=== PATIENT | male | born 1935 | race Caucasian/White ===

== ENCOUNTER 2022-06-28 10:15 | Inpatient (IN) | payer MEDICARE ==
[~2022-06-28] VITALS: Ht 152.4 cm; Wt 108.4 kg
[2022-06-28] MEDS ORDERED: MIDAZOLAM HCL 2 MG/2ML VIAL ONE (10:21)
[2022-06-28] MEDS ORDERED: FENTANYL PF 100MCG/2ML AMPUL ONE (10:21)
[2022-06-28] MEDS ORDERED: LIDOCAINE HCL/MPF 1% 30 ML VIAL IJ ONE (10:21)
[2022-06-28] MEDS ORDERED: IV SET PRIMARY PUMP SET 1 EA INFUS.SET MC ONE (10:21)
[2022-06-28] MEDS ORDERED: IV NS 0.9% 1,000 ML ONE (10:21)
[2022-06-28] MEDS ORDERED: IODIXANOL 150 ML IV ONE (10:21)
[2022-06-28] MEDS ORDERED: NITROGLYCERIN IN 5 % DEXTROSE 250 ML IV ONE (10:22)
[2022-06-28 10:25] LABS: BASOPHILS % (AUTO) 0.3 % (0.0-2.0); EOSINOPHILS % (AUTO) 0.6 % (0.0-6.0); HEMATOCRIT 38 % (39-51); LYMPHOCYTES # (AUTO) 1.2 K/uL (0.8-4.8); LYMPHOCYTES % (AUTO) 15.7 % (20.0-44.0); MEAN CORPUSCULAR HGB CONC 34 g/dl (31.0-36.0); MEAN CORPUSCULAR VOLUME 95 fL (80-96); MONOCYTES # (AUTO) 1.2 K/uL (0.1-1.30); MONOCYTES % (AUTO) 16.3 % (2.0-12.0); NEUTROPHILS # (AUTO) 5.1 K/uL (1.8-8.9); NEUTROPHILS % (AUTO) 67.1 % (43.0-81.0); PLATELET COUNT (AUTO) 174 K/uL (150-450); RED BLOOD CELL COUNT(AUTO) 4.03 MIL/uL (4.5-6.0); WHITE BLOOD COUNT (AUTO) 7.6 K/uL (4.3-11.0)
[2022-06-28 10:35] LABS: CALCIUM, SERUM 8.2 mg/dL (8.5-10.1); CREATININE 0.9 mg/dL (0.6-1.3); POTASSIUM 3.8 mmol/L (3.5-5.1)
[2022-06-28 12:00] VITALS: BP 138/90
--- NOTE | 2022-06-28 12:00 | NUR ---
rn note patient transferred from [facility] to [facility] due to procedure left heart cath. patient no stent placed due to multiple vessel problems. patient might need open heart surgery at [facility]. patient stable vital signs recovering from procedure. received report from carpenter labor supervisor nurse to release air starting 1415.
--- NOTE | 2022-06-28 13:00 | NUR ---
RN NOTE PATIENT IS ALERT AND ORIENTED X4. PATIENT IS AMBULATORY WITH STANDBY ASSISTANCE. PATIENT IS ABLE TO MAKE NEEDS KNOWN AND VERBALLY RESPONSIVE. PATIENT HAS EDEMA ON LOWER EXTREMITIES. PATIENT HAS SCABS, ECZEMA, PSOARIES AND DISCOLORATION THROUGHOUT BODY. PATIENT IS CURRENTLY NPO. PATIENT IS WAITING TO BE SEEN BY DR. PADILLA AND SURGEON REGARDING NEXT PLAN AND WHETHER TO BE TRANSFERRED TO ANOTHER HOSPITAL FOR POSSIBLE OPEN HEART SURGERY. PATIENT IS ON ROOM AIR TOLERATING AT ABOVE 95%. IV SITE ON L ARM. IV INTACT, PATENT AND FLUSHING WELL. FAMILY AT BEDSIDE. WAITING TO BE SEEN BY SURGEON FOR CONSULTATION. ALL SAFETY MEASURES IN PLACE. CALL LIGHT WITHIN REACH. BED LOCKED AT LOWEST POSITION. BEDSIDE TABLE NEXT TO PATIENT. BED ALARM ON. SIDE RAILS UP X2
[2022-06-28 13:49] LABS: EOSINOPHILS % (MANUAL) 1 % (0-4); LYMPHOCYTES % (MANUAL) 17 % (16-48); MONOCYTES % (MANUAL) 13 % (0-11.0); NEUTROPHILS % (MANUAL) 69 (42-76)
--- NOTE | 2022-06-28 14:15 | NUR ---
REMOVED AIR ON TR BAND. NO SIGNS OF BLEEDING FROM SITE REMOVED 5 CC OF AIR
--- NOTE | 2022-06-28 14:30 | NUR ---
REMOVED ANOTHER 5 ML OF AIR.NO SIGNS OF LEAKING OR BLEEDING FROM SITE
--- NOTE | 2022-06-28 14:45 | NUR ---
REMOVED LAST 5 ML OF NO AIR. NO SIGNS OF LEAKING OR BLEEDING FROM SITE. NO COMPLAINTS OF PAIN
[2022-06-28] MEDS ORDERED: ASPI-1169 PO (15:21)
[2022-06-28] MEDS ORDERED: ATOR40TA PO (15:21)
[2022-06-28 16:00] VITALS: BP 164/90
[2022-06-28] MEDS ORDERED: CEFT1FRO2 IV (17:03)
[2022-06-28] MEDS ORDERED: METO25TA6 PO (17:03)
[2022-06-28] MEDS ORDERED: ENOX60DI8 SQ (17:03)
--- NOTE | 2022-06-28 19:00 | NUR ---
EMBALMER APPRENTICE CLOSING NOTE PATIENT IS ALERT AND ORIENTED X4. PATIENT IS AMBULATORY WITH STANDBY ASSISTANCE. PATIENT IS ABLE TO MAKE NEEDS KNOWN AND VERBALLY RESPONSIVE. PATIENT HAS EDEMA ON LOWER EXTREMITIES. PATIENT HAS SCABS, ECZEMA, PSOARIES AND DISCOLORATION THROUGHOUT BODY. PATIENT IS CURRENTLY NPO. PATIENT IS ON ROOM AIR TOLERATING AT ABOVE 95%. IV SITE ON L ARM. IV INTACT, PATENT AND FLUSHING WELL. FAMILY AT BEDSIDE. WAITING TO BE SEEN BY SURGEON FOR CONSULTATION. ALL SAFETY MEASURES IN PLACE. CALL LIGHT WITHIN REACH. BED LOCKED AT LOWEST POSITION. BED ALARM ON. SIDE RAILS UP X2
[2022-06-28 20:00] VITALS: BP 173/100
--- NOTE | 2022-06-28 20:59 | NUR ---
TICKET PRINTER OPENING NOTE PT RECEIVED IN BED WITH FAMILY AND DR MALAVE AT BEDSIDE, AWAKE, A&O X4, CALM, COOPERATIVE. PT ON RA WITH O2SAT OF 95%; NO S/S OF RESP DISTRESS, NO SOB OR COUGH, NON-LABORED AND EQUAL BREATHING. PT ATTACHED TO EXTERNAL MONITOR, CONTROLLED AFIB-AFLUTTER WITH HR OF 76. IV ACCESS ON RFA 20G, INTACT AND PATENT, FLUSHES EASILY WITH NO RESISTANCE; SL. BED IN LOWEST POSITION, CALL LIGHT WITHIN REACH, SIDE RAILS UP X2. WILL CONTINUE TO MONITOR THROUGHOUT THE NIGHT.
[2022-06-28] MEDS ORDERED: MORPHINE SULFATE INJ 2 MG/ML DISP.SYRIN IV PRN (21:30)
[2022-06-28] MEDS ORDERED: Z GUARD REMEDY 4 OZ OINT TP PRN (21:30)
[2022-06-28] MEDS ORDERED: ONDANSETRON HCL/PF 4 MG/2 ML VIAL IVP PRN (21:30)
[2022-06-28] MEDS ORDERED: MAG HYDROX/AL HYDROX/SIMETH 30 ML UDC PO PRN (21:30)
[2022-06-28] MEDS ORDERED: MAGNESIUM HYDROXIDE 30 ML UDC PO PRN (21:30)
[2022-06-28] MEDS ORDERED: HYDROCODONE/APAP 5/325MG TABLET PO PRN (21:30)
[2022-06-28] MEDS ORDERED: ACETAMINOPHEN 325 MG TABLET PO PRN (21:30)
[2022-06-28] MEDS ORDERED: TEMAZEPAM 15 MG CAPSULE PO PRN (21:30)
[2022-06-28] MEDS: ATORVASTATIN 40 MG TABLET PO SCH (22:07)
[2022-06-28] MEDS: ENOXAPARIN SODIUM 40 MG/0.4 ML DISP.SYRIN SQ SCH (22:12)
[2022-06-29] VITALS: BP 154/106
[2022-06-29 04:00] VITALS: BP 145/89
[2022-06-29 06:49] LABS: BASOPHILS % (AUTO) 0.4 % (0.0-2.0); EOSINOPHILS % (AUTO) 2.3 % (0.0-6.0); HEMATOCRIT 38 % (39-51); LYMPHOCYTES # (AUTO) 1.2 K/uL (0.8-4.8); LYMPHOCYTES % (AUTO) 19.4 % (20.0-44.0); MEAN CORPUSCULAR HGB CONC 34 g/dl (31.0-36.0); MEAN CORPUSCULAR VOLUME 95 fL (80-96); MONOCYTES # (AUTO) 1.1 K/uL (0.1-1.30); MONOCYTES % (AUTO) 16.7 % (2.0-12.0); NEUTROPHILS # (AUTO) 3.9 K/uL (1.8-8.9); NEUTROPHILS % (AUTO) 61.2 % (43.0-81.0); PLATELET COUNT (AUTO) 183 K/uL (150-450); RED BLOOD CELL COUNT(AUTO) 4.03 MIL/uL (4.5-6.0); WHITE BLOOD COUNT (AUTO) 6.3 K/uL (4.3-11.0)
--- NOTE | 2022-06-29 07:04 | NUR ---
BONDING MACHINE SETTER CLOSING NOTE PT REMAINS IN BED ASLEEP BUT EASILY AROUSABLE, A&O X4, CALM, COOPERATIVE. CONTINUES TO BE ON RA WITH O2SAT RANGING FROM 95%-97%; NO S/S OF RESP DISTRESS, NO SOB OR COUGH, NON-LABORED AND EQUAL BREATHING. ATTACHED TO EXTERNAL MONITOR, CONTROLLED AFIB-AFLUTTER HR NOTED TO DROP IN THE 30S AND INCREASE BACK UP IN THE 70S. IV ACCESS ON LEFT HAND 20G, INTACT AND PATENT, FLUSHES EASILY WITH NO RESISTANCE; SL. ALL DUE MEDS ADMINISTERED DURING THE NIGHT. BED IN LOWEST POSITION, CALL LIGHT WITHIN REACH, SIDE RAILS UP X2. WILL ENDORSE TO DAYSHIFT NURSE TO CONTINUE CARE.
[2022-06-29 07:08] LABS: CALCIUM, SERUM 8.1 mg/dL (8.5-10.1); CREATININE 0.7 mg/dL (0.6-1.3); PHOSPHORUS 2.9 mg/dL (2.5-4.9); POTASSIUM 3.7 mmol/L (3.5-5.1)
--- NOTE | 2022-06-29 07:16 | NUR ---
FILM PROCESSOR OPENING NOTE PT RECEIVED IN BED , AWAKE, A&O X4, CALM, COOPERATIVE. PATIENT T ON RA WITH O2SAT OF 95%; NO S/S OF RESP DISTRESS, NO SOB OR COUGH, NON-LABORED AND EQUAL BREATHING. PT ATTACHED TO EXTERNAL MONITOR, CONTROLLED AFIB-AFLUTTER WITH HR OF 72. IV ACCESS ON LEFT HAND 20G, INTACT AND PATENT, FLUSHES EASILY WITH NO RESISTANCE; SL. BED IN LOWEST POSITION, CALL LIGHT WITHIN REACH, SIDE RAILS UP X2. WILL CONTINUE TO MONITOR THROUGHOUT THE DAY SHIFT AND FALLOW THE PLAN OF CARE
[2022-06-29] MEDS: PANTOPRAZOLE 40 MG TABLET.DR PO SCH (07:38)
[2022-06-29 08:00] VITALS: BP 158/93
[2022-06-29] MEDS: ASPIRIN EC 81 MG TABLET.DR PO SCH (08:38)
[2022-06-29] MEDS: METOPROLOL TARTRATE 25 MG TABLET PO SCH ×2 (08:38→21:55)
[2022-06-29] MEDS ORDERED: PANTOPRAZOLE 40 MG VIAL IV SCH (09:00)
[2022-06-29 10:56] LABS: BAND % (MANUAL) 2 % (0.0-5.0); EOSINOPHILS % (MANUAL) 3 % (0-4); LYMPHOCYTES % (MANUAL) 22 % (16-48); MONOCYTES % (MANUAL) 17 % (0-11.0); NEUTROPHILS % (MANUAL) 56 (42-76)
[2022-06-29 12:00] VITALS: BP 94/61
[2022-06-29 16:00] VITALS: BP 143/65
--- NOTE | 2022-06-29 19:36 | NUR ---
SKIP LOADER CLOSING NOTE PT REMAINS IN BED ASLEEP BUT EASILY AROUSABLE, A&O X4, CALM, COOPERATIVE. CONTINUES TO BE ON RA WITH O2SAT RANGING FROM 95%-97%; NO S/S OF RESP DISTRESS, NO SOB OR COUGH, NON-LABORED AND EQUAL BREATHING. ATTACHED TO EXTERNAL MONITOR, CONTROLLED AFIB-AFLUTTER HR NOTED TO DROP IN THE 30S AND INCREASE BACK UP IN THE 70S. IV ACCESS ON LEFT RIGHT HAND 24G, INTACT AND PATENT, FLUSHES EASILY WITH NO RESISTANCE; SL. ALL DUE MEDS ADMINISTERED DURING THE NIGHT. BED IN LOWEST POSITION, CALL LIGHT WITHIN REACH, SIDE RAILS UP X2. WILL ENDORSE TO FILING AND POLISHING SUPERVISOR NURSE TO CONTINUE CARE.
--- NOTE | 2022-06-29 19:40 | NUR ---
RN NOTES RECEIVED PT FOR CONTINUITY OF CARE. PATIENT A/OX4 IN NO S/SX OF ACUTE DISTRESS AT THIS TIME; CURRENTLY ON ROOM AIR; WITH 02 SAT >95% AT THIS TIME. ON CARDIAC DIET. WITH IV ACCESS ON R HAND#22 PATENT, INTACT AND FLUSHING WELL. WILL ENSURE SAFETY MEASURES WITHIN THE SHIFT. PATIENT BED ALARM IS ON. HEAD OF BED ELEVATED. BED IS LOCKED, IN LOWEST POSITION AND SIDE RAILS UP. CALL LIGHT WITHIN REACH OF THE PATIENT. WILL CONTINUE TO MONITOR AND REASSESS FOR ANY CHANGES AND WILL CARRY OUT ANY ONGOING AND ACTIVE MD ORDER.
[2022-06-29 20:00] VITALS: BP 136/62
[2022-06-29] MEDS: ENOXAPARIN SODIUM 40 MG/0.4 ML DISP.SYRIN SQ SCH (21:54)
[2022-06-29] MEDS: ATORVASTATIN 40 MG TABLET PO SCH (21:54)
[2022-06-30] VITALS: BP 155/87
[2022-06-30 04:00] VITALS: BP 147/80
--- NOTE | 2022-06-30 06:23 | NUR ---
RN CLOSING NOTE: PATIENT REMAINS IN ROOM IN NO SIGNS OF RESPIRATORY DISTRESS, PATIENT STILL ON ROOM AIR;TOLERATING WELL SATURATING @ >95% SP02. PLAN: CONSIDER CABG, PT EVAL & FAMILY WANTS TO BE TRANSFERRED TO [facility]. SAFETY MEASURES IMPLEMENTED, BED IN LOWEST POSITION, LOCKED, SIDE RAILS UP, CALL LIGHT WITHIN REACH. ALL NEEDS AND ORDERS ADDRESSED DURING THE SHIFT. IV ACCESS MAINTAINED INTACT, SECURED AND FLUSHING WELL. PATIENT KEPT CLEAN AND COMFORTABLE WITHIN THE SHIFT. PATIENT ENDORSED TO INCOMING SHIFT RN WITH STABLE VITAL SIGN AND FOR CONTINUITY OF CARE.
[2022-06-30 06:45] LABS: BASOPHILS % (AUTO) 0.6 % (0.0-2.0); EOSINOPHILS % (AUTO) 3.3 % (0.0-6.0); HEMATOCRIT 38 % (39-51); LYMPHOCYTES # (AUTO) 1.4 K/uL (0.8-4.8); LYMPHOCYTES % (AUTO) 25.4 % (20.0-44.0); MEAN CORPUSCULAR HGB CONC 34 g/dl (31.0-36.0); MEAN CORPUSCULAR VOLUME 95 fL (80-96); MONOCYTES % (AUTO) 17.7 % (2.0-12.0); NEUTROPHILS # (AUTO) 2.9 K/uL (1.8-8.9); PLATELET COUNT (AUTO) 205 K/uL (150-450); RED BLOOD CELL COUNT(AUTO) 4.03 MIL/uL (4.5-6.0); WHITE BLOOD COUNT (AUTO) 5.5 K/uL (4.3-11.0)
[2022-06-30 06:58] LABS: CALCIUM, SERUM 8.6 mg/dL (8.5-10.1); CREATININE 0.9 mg/dL (0.6-1.3); MAGNESIUM 2.1 mg/dL (1.8-2.4); PHOSPHORUS 3.5 mg/dL (2.5-4.9); POTASSIUM 4.2 mmol/L (3.5-5.1)
--- NOTE | 2022-06-30 07:32 | NUR ---
RN OPEN NOTE: RECEIVED PATIENT IN BED AWAKE , ALERT , ORIENTED TIMES 4 , ON ROOM AIR , BREATHING NON LABOR NO SIGNS OF RESPIRATORY DISTRESS, SATURATING @ >95% SP02. PLAN: CONSIDER CABG, PT EVAL & FAMILY WANTS TO BE TRANSFERRED TO [facility]. SAFETY MEASURES IMPLEMENTED, BED IN LOWEST POSITION, LOCKED, SIDE RAILS UP, CALL LIGHT WITHIN REACH. IV ACCESS MAINTAINED INTACT ON RIGHT HAND 24 G, SECURED AND FLUSHING WELL. WILL CONTINUE TO MONITOR AND FALLOW THE POC
[2022-06-30] MEDS: PANTOPRAZOLE 40 MG TABLET.DR PO SCH (07:47)
[2022-06-30 08:00] VITALS: BP 151/74
[2022-06-30] MEDS: ASPIRIN EC 81 MG TABLET.DR PO SCH (08:02)
[2022-06-30] MEDS: METOPROLOL TARTRATE 25 MG TABLET PO SCH ×2 (08:03→21:00)
[2022-06-30 11:19] LABS: LYMPHOCYTES % (MANUAL) 28 % (16-48); NEUTROPHILS % (MANUAL) 53 (42-76)
[2022-06-30 11:20] LABS: EOSINOPHILS % (MANUAL) 1 % (0-4); MONOCYTES % (MANUAL) 18 % (0-11.0)
[2022-06-30 12:00] VITALS: BP 157/74
[2022-06-30 16:00] VITALS: BP 150/84
--- NOTE | 2022-06-30 18:41 | NUR ---
RN CLOSING NOTE PATIENT IS ALERT , ORIENTED TIMES 4 , ON ROOM AIR , BREATHING NON LABOR NO SIGNS OF RESPIRATORY DISTRESS, SATURATING @ >95% SP02. PLAN: CONSIDER CABG NEXT SATURDAY AT THE [facility] . PT EVAL WAS DONE .ALL MEDICATIONS WERE ADMINISTERED , ALL NEEDS WERE MET .SAFETY MEASURES IMPLEMENTED, BED IN LOWEST POSITION, LOCKED, SIDE RAILS UP, CALL LIGHT WITHIN REACH. IV ACCESS MAINTAINED INTACT ON RIGHT HAND 24 G, SECURED AND FLUSHING WELL. WILL ENDORSE VP PLATFORMS TO FALLOW POC.
[2022-06-30 20:00] VITALS: BP 149/87
[2022-06-30] MEDS: ATORVASTATIN 40 MG TABLET PO SCH (21:23)
[2022-06-30] MEDS: ENOXAPARIN SODIUM 40 MG/0.4 ML DISP.SYRIN SQ SCH (21:24)
[2022-07-01] VITALS (7 sets, daily range): BP systolic 132–169; BP diastolic 62–82
--- NOTE | 2022-07-01 06:43 | NUR ---
RN CLOSING NOTE: PATIENT REMAINS IN ROOM IN NO SIGNS OF RESPIRATORY DISTRESS, PATIENT STILL ON ROOM AIR;TOLERATING WELL SATURATING @ >95% SP02. PLAN: CABG THIS SATURDAY IN [facility], SAFETY MEASURES IMPLEMENTED, BED IN LOWEST POSITION, LOCKED, SIDE RAILS UP, CALL LIGHT WITHIN REACH. ALL NEEDS AND ORDERS ADDRESSED DURING THE SHIFT. IV ACCESS MAINTAINED INTACT, SECURED AND FLUSHING WELL. PATIENT KEPT CLEAN AND COMFORTABLE WITHIN THE SHIFT. PATIENT ENDORSED TO INCOMING SHIFT RN WITH STABLE VITAL SIGN AND FOR CONTINUITY OF CARE.
--- NOTE | 2022-07-01 08:02 | NUR ---
MARKETING SEGMENT MANAGER NOTE: PATIENT IN BED ALERT ORIENTED , NO SIGNS OF RESPIRATORY DISTRESS, PATIENT S ON ROOM AIR;TOLERATING WELL SATURATING 97% SP02. SAFETY MEASURES IMPLEMENTED, BED IN LOWEST POSITION, LOCKED, SIDE RAILS UP, CALL LIGHT WITHIN REACH. IV ACCESS MAINTAINED INTACT, SECURED AND FLUSHING WELL. PATIENT KEPT CLEAN AND COMFORTABLE AT THIS TIME, ON TELE MONITOR AFIB HR 89 WILL CONT TO MONITOR CLOSELY
[2022-07-01] MEDS: ASPIRIN EC 81 MG TABLET.DR PO SCH (08:07)
[2022-07-01] MEDS: PANTOPRAZOLE 40 MG TABLET.DR PO SCH (08:07)
[2022-07-01] MEDS: METOPROLOL TARTRATE 25 MG TABLET PO SCH ×2 (08:08→20:48)
--- NOTE | 2022-07-01 08:30 | NUR ---
FLOORWORKER DISTRIBUTOR NOTE DR LOMELI AT BEDSIDE, NOTIFIED THAT BP 169/82 ON LOPRESSOR 25 MG PO , NO NEW ORDER GIVEN AT THIS TIME
--- NOTE | 2022-07-01 09:06 | NUR ---
ENCODING CLERK NOTE RECHECKED BP 138/78 ,WILL MONITOR
--- NOTE | 2022-07-01 11:04 | NUR ---
PAN SHAKER NOTE COVID TEST TAKEN ,SENT TO LAB
--- NOTE | 2022-07-01 12:48 | NUR ---
telegraph editor note block and case maker notified that patient is going to transfer to [facility] per dr zamudio request for cabg surgery
--- NOTE | 2022-07-01 15:08 | NUR ---
color television console monitor note rounds made, able to go br, able to make bm ,keep clean dry , call light within reach , all needs attended not in distress
--- NOTE | 2022-07-01 17:49 | NUR ---
DIGITAL FORENSIC EXAMINER NOTE FAMILY AT BEDSIDE , HAVING DINNER , ABLE TO EAT SELF, ALL NEEDS ATTENDED. NOT IN DISTRESS, WILL CONT TO MONITOR CLOSELY
--- NOTE | 2022-07-01 18:53 | NUR ---
POULTRY PICKING MACHINE TENDER NOTE NPATINT SITTING AT EDGE OF BED , FAMILY AT BEDSIDE , ALL NEEDS ATTENDED, ON RA NO SOB NOTED , ON TELE MONITOR AFIB HR 75 AT THIS TIME, RT HAND HL INTACT AND FLUSHED WELL , BED IN LOWEST AND LOCKED POSITION , IMAGES PLACED IN CHART , WILL CONT TO MONITOR, WILL F\U FOR TRANSFER TO [facility], , NOT IN IN DISTRESS
--- NOTE | 2022-07-01 19:30 | NUR ---
PATIENT IN BED AWAKE, A/O X4, PATIENT IS ON RA, NO SIGNS OF RESPIRATORY DISTRESS, TOLERATING WELL, SATURATING AT 95% SP02. IV ACCESS ON RT HAND G#22 INTACT AND FLUSHING WELL. AFIB ON TELE MONITOR WITH A HR OF 89. SAFETY MEASURES IN PLACE. BED IN LOWEST AND LOCKED POSITION, HEAD OF BED SLIGHTLY ELEVATED, SIDE RAILS UP X2, CALL LIGHT WITHIN REACH, WILL CONTINUE PLAN OF CARE.
[2022-07-01] MEDS: ENOXAPARIN SODIUM 40 MG/0.4 ML DISP.SYRIN SQ SCH (20:46)
[2022-07-01] MEDS: ATORVASTATIN 40 MG TABLET PO SCH (21:28)
[2022-07-02] VITALS (7 sets, daily range): BP systolic 127–180; BP diastolic 66–100
--- NOTE | 2022-07-02 00:15 | NUR ---
BP 180/100. MD INFORMED. ORDER FOR HYDRALAZINE 10MG IV Q8H PRN FOR SBP >160 ORDERED AND CARRIED OUT. WILL CONTINUE TO MONITOR.
[2022-07-02] MEDS ORDERED: hydrALAZINE HCL IV 20 MG VIAL IV PRN (00:30)
--- NOTE | 2022-07-02 06:55 | NUR ---
PT IN BED AWAKE EARLY, RESTING COMFORTABLY IN BED WHILE WATCHING TV, A/O X4, PATIENT IS ON RA, NO SIGNS OF RESPIRATORY DISTRESS, TOLERATING WELL, SATURATING AT 96%. IV ACCESS ON RT HAND G#22 INTACT AND FLUSHING WELL. AFIB ON TELE MONITOR WITH A HR AT 55-60'S. SAFETY MEASURES MAINTAINED. BED IN LOWEST AND LOCKED POSITION, HEAD OF BED SLIGHTLY ELEVATED, SIDE RAILS UP X2, CALL LIGHT WITHIN REACH, WILL ENDORSE TO NEXT NURSE ON DUTY FOR CONTINUITY OF CARE.
--- NOTE | 2022-07-02 07:15 | NUR ---
CORPORATE AIRCRAFT MECHANIC OPENING NOTES: RECEIVED PT FOR CONTINUITY OF CARE. PATIENT A/OX4 IN NO S/SX OF ACUTE DISTRESS AT THIS TIME; CURRENTLY ON ROOM AIR WITH 02 SAT 96% AT THIS TIME.WITH IV ACCESS R HAND PATENT, INTACT AND FLUSHING WELL.ENSURE SAFETY MEASURES WITHIN THE SHIFT. PATIENT BED ALARM IS ON. HEAD OF BED ELEVATED. BED IS LOCKED, IN LOWEST POSITION AND SIDE RAILS UP. CALL LIGHT WITHIN REACH OF THE PATIENT. WILL CONTINUE TO MONITOR AND REASSESS FOR ANY CHANGES AND WILL CARRY OUT ANY ONGOING AND ACTIVE MD ORDER.
[2022-07-02] MEDS: PANTOPRAZOLE 40 MG TABLET.DR PO SCH (07:56)
[2022-07-02] MEDS: ASPIRIN EC 81 MG TABLET.DR PO SCH (09:31)
[2022-07-02] MEDS: METOPROLOL TARTRATE 25 MG TABLET PO SCH ×2 (09:38→21:08)
--- NOTE | 2022-07-02 10:14 | NUR ---
WOUND CARE CONSULT: PT DENIES NEED FOR SKIN ASSESSMENT. LEFT ELBOW DRY SCAB NOTED TO BE PRESENT ON ADMISSION. PT IS AMBULATORY. WILL SEE PRN.
--- NOTE | 2022-07-02 18:00 | NUR ---
RN NOTES: CALLED [facility] TO GIVE REPORT PT WILL BE TRANSFERRED AT 10 PM [facility] CHARGE NURSE SAID INSPECTOR LINE HAS TO CALL THE STAFF WILL COME AT 7 PM TO GET REPORT,
--- NOTE | 2022-07-02 19:28 | NUR ---
PATIENT REMAINS IN ROOM IN NO SIGNS OF RESPIRATORY DISTRESS, PATIENT ON ROOM AIR SATURATING @ >95% SP02. SAFETY MEASURES IMPLEMENTED, BED IN LOWEST POSITION, LOCKED, SIDE RAILS UP, CALL LIGHT WITHIN REACH. ALL NEEDS AND ORDERS ADDRESSED DURING THE SHIFT. IV ACCESS MAINTAINED INTACT, SECURED AND FLUSHING WELL. ALL DUE MEDS GIVEN ORDERED & SCHEDULED ; PATIENT TOLERATED WELL. PATIENT KEPT CLEAN AND COMFORTABLE WITHIN THE SHIFT. PATIENT ENDORSED TO INCOMING SHIFT RN WITH STABLE VITAL SIGN AND FOR CONTINUITY OF CARE.ENDORSED THAT RADIO NEWS WRITER BY [facility] WILL BE AT 10 PM AND TO CALL [facility] FOR REPORT PT WILL BE GOING TO ROOM 114B. FAMILY AT BEDSIDE MADE AWARE
--- NOTE | 2022-07-02 19:30 | NUR ---
RECEIVED PT FOR CONTINUITY OF CARE. PATIENT A/OX4. CURRENTLY ON ROOM AIR WITH 02 SAT 96% AT THIS TIME. IN NO S/SX OF ACUTE DISTRESS AT THIS TIME; WITH IV ACCESS R HAND PATENT, INTACT AND FLUSHING WELL. SAFETY MEASURES IN PLACE. BED IN LOWEST AND LOCKED POSITION, HEAD OF BED SLIGHTLY ELEVATED, SIDE RAILS UP X2, CALL LIGHT WITHIN REACH, WILL CONTINUE PLAN OF CARE.
--- NOTE | 2022-07-02 20:00 | NUR ---
REPORT GIVEN TO KELLI ELY FROM [facility]. PT WILL BE TRANSFERRED AND WILL BE PICKED UP BY [facility] AT 10 PM. WILL KEEP RT HAND IV ACCESS IN PLACE AND WILL NOT GIVE LOVENOX REQUESTED AND ORDERED DUE TO SCHEDULE FOR CABG SURGERY.
[2022-07-02] MEDS: ENOXAPARIN SODIUM 40 MG/0.4 ML DISP.SYRIN SQ SCH (20:34)
[2022-07-02] MEDS: ATORVASTATIN 40 MG TABLET PO SCH (21:05)
--- NOTE | 2022-07-02 22:16 | NUR ---
DISCHARGED PT VIA GURNEY TO TRANSFER TO [facility]. REPORT GIVEN TO [employer]. PT NOT IN DISTRESS. NO SOB. IV ACCESS KEPT IN PLACE REQUESTED BY SUZIE ELY. TELE MONITOR REMOVED. REVIEWED DISCHARGE INSTRUCTION WITH PT. EXIT CARE PROVIDED WITH ALL FORMS. BELONGINS CHECKED. V/S STABLE.
== END 2022-07-02 22:50 | disposition short-term general hospital (02) | DRG 281 ==
LOC: TELE1 10:15
PROVIDERS: ADMIT Nurse Practitioner Acute Care; ATTEND Internal Medicine
PROC: 4A023N7 Measurement of Cardiac Sampling and Pressure, Left Heart, Percutaneous Approach (ICD-10-PCS; principal; 2022-06-28)
PROC: B211YZZ Fluoroscopy of Multiple Coronary Arteries using Other Contrast (ICD-10-PCS; 2022-06-28)
DX: I25.10 Atherosclerotic heart disease of native coronary artery without angina pectoris (principal); I21.A1 Myocardial infarction type 2; I48.92 Unspecified atrial flutter; Z68.41 Body mass index [BMI] 40.0-44.9, adult; I42.9 Cardiomyopathy, unspecified; S50.312A Abrasion of left elbow, initial encounter; R55 Syncope and collapse; W19.XXXA Unspecified fall, initial encounter; Y93.9 Activity, unspecified; Y92.009 Unspecified place in unspecified non-institutional (private) residence as the place of occurrence of the external cause; E66.01 Morbid (severe) obesity due to excess calories; Z20.822 Contact with and (suspected) exposure to COVID-19; Z87.891 Personal history of nicotine dependence
CPT/HCPCS: 36415; 80048-TC; 83735-TC; 84100-TC; 85025-TC; 85610-TC; 85730-TC; 94799-TC; 97110-TC; 97112-TC; 97116-TC; 97530-TC; G0378; G0500; J0360; J1644; J1650; J2250; J3010; J3490; J7030; Q9967